=== PATIENT | male | born 1985 ===

== ENCOUNTER 2021-02-12 10:57 | Emergency (ER) | payer OTHER ==
[2021-02-12 21:38] LABS: SARS-CoV-2 PCR by NAA Not Detected (NotDetected)
== END 2021-02-12 12:10 | disposition home or self-care (01) ==
LOC: ERS 10:57
DX: Z20.822 Contact with and (suspected) exposure to COVID-19 (principal); Z87.891 Personal history of nicotine dependence
CPT/HCPCS: 99283; U0003; U0005

== ENCOUNTER 2023-08-02 10:59 | Outpatient (CLI) | payer BC | END 2023-08-02 11:00 | disposition home or self-care (01) | LOC: BICRAD 10:59 | PROVIDERS: ATTEND Family Medicine | DX: M54.2 Cervicalgia (principal); M47.812 Spondylosis without myelopathy or radiculopathy, cervical region | CPT/HCPCS: 72040; 72072 ==